=== PATIENT | female | born 1955 | race Caucasian/White ===

== ENCOUNTER → 2018-12-16 | Outpatient (REF) ==
[~2018-12-16] MED LIST: ADDERALL20 MG PO; AMOXICILLIN500 MG PO; AMOXICILLIN875 MG PO; BACTRIM DS1 TAB PO; CYMBALTA60 MG PO; DOXYCYCL HYC100 MG PO; ESCITALOPRAM OX10 MG PO; FLONASE NASAL50 MCG; POLYTRIM OU; PRILOSEC20 MG PO; PROZAC20 M1 PO
== END | disposition home or self-care (01) | DRG 951 ==
LOC: LAB 09:51
DX: Z13.228 Encounter for screening for other metabolic disorders (principal)

== ENCOUNTER 2018-12-18 12:02 | Emergency (ER) | payer MEDICAID ==
[~2018-12-18] VITALS: Ht 175.3 cm; Wt 75.5 kg
[~2018-12-18 12:02] MED LIST changes: -ADDERALL20 MG PO; -ESCITALOPRAM OX10 MG PO
[2018-12-18 12:38] LABS: IMMATURE GRANULOCYTES 0.4 % (0.0-5.0); MEAN CELL VOLUME 61.5 fL CALC (80.0-100.0); MEAN CORPUSCULAR HGB 14.6 pG CALC (26.0-32.0); MEAN CORPUSCULAR HGB CONC 23.7 g/L CALC (32.0-36.0); NEUT# 4.7 thou/uL (2.00-7.15); RED BLOOD COUNT 3.09 mill/uL (4.20-5.60); RED CELL DISTRI WIDTH 24.7 % (11.5-15.5)
[2018-12-18 12:48] LABS: HEMOGLOBIN 4.5 g/dl (12.0-16.0)
[2018-12-18 12:56] LABS: ACT PARTIAL THROMBO TIME 22.9 SECONDS (20.0-32.5)
[2018-12-18] MEDS ORDERED: ADDERALL20 MG PO (12:57)
[2018-12-18] MEDS ORDERED: ESCITALOPRAM OX10 MG PO (12:58)
[2018-12-18 13:08] LABS: ALBUMIN 4.5 g/dL (3.2-5.0); ALKALINE PHOSPHATASE 172 u/l (38-126); ANION GAP 16 (6-22 (CALC)); BILIRUBIN, TOTAL 0.4 mg/dL (0.0-1.4); BUN 12 mg/dL (8-23); BUN/CREATININE RATIO 25 (12-20 (CALC)); CARBON DIOXIDE 24 mmol/l (22-30); CHLORIDE 106 mmol/l (95-108); CREATININE 0.5 mg/dL (0.5-1.0); GFR > 60 ML/MIN (>=60 (CALC)); GFR FOR AFR.AMER. > 60 ML/MIN (>=60 (CALC)); POTASSIUM 4.5 mmol/l (3.5-5.1); SODIUM 141 mmol/l (137-146); TOTAL PROTEIN 7.4 g/dL (6.3-8.2)
[2018-12-18 13:11] LABS: SGOT/AST 55 u/l (9-36)
[2018-12-18 14:13] VITALS: BP 119/58
[2018-12-18 14:25] VITALS: BP 125/75
== END 2018-12-18 14:25 | disposition short-term general hospital (02) ==
LOC: ED 12:02
PROVIDERS: Emergency Medicine
DX: D64.9 Anemia, unspecified (principal); R00.2 Palpitations; R53.1 Weakness; R53.83 Other fatigue; R06.02 Shortness of breath; Z13.0 Encounter for screening for diseases of the blood and blood-forming organs and certain disorders involving the immune mechanism
CPT/HCPCS: P9016

== ENCOUNTER → 2018-12-18 | Outpatient (REF) | payer MEDICAID ==
[2018-12-18 10:00] LABS: IMMATURE GRANULOCYTES 0.3 % (0.0-5.0); MEAN CORPUSCULAR HGB 14.3 pG CALC (26.0-32.0); MEAN CORPUSCULAR HGB CONC 23.4 g/L CALC (32.0-36.0); NEUT# 4.2 thou/uL (2.00-7.15); RED BLOOD COUNT 3.01 mill/uL (4.20-5.60); RED CELL DISTRI WIDTH 24.2 % (11.5-15.5)
[2018-12-18 10:23] LABS: MEAN CELL VOLUME 61.1 fL CALC (80.0-100.0)
[2018-12-18 10:24] LABS: HEMATOCRIT 18.4 % (37.0-47.0); HEMOGLOBIN 4.3 g/dl (12.0-16.0)
== END | disposition home or self-care (01) ==
LOC: LAB 09:34
DX: Z13.0 Encounter for screening for diseases of the blood and blood-forming organs and certain disorders involving the immune mechanism (principal)